=== PATIENT | female | born 1995 | race Caucasian/White ===

== ENCOUNTER 2019-06-30 15:28 | Outpatient (CLI) | payer OTHER ==
--- NOTE | 2019-06-30 17:14 | ULT ---
RIGHT BREAST DIAGNOSTIC ULTRASOUND: Indication: 24-year-old female with 5 weeks of greenish to brownish discharge from the right breast. Technique: Grayscale color doppler images were obtained of the right breast in the retroareolar regio n. FINDINGS: No suspicious sonographic abnormalities seen within the right breast retroareolar region. There is no evidence of ductal ectasia. A well circumscribed hypoechoic mass is incidentally noted in the right breast at the 7 o'clock posit ion 3 cm from the nipple measuring 7 mm x 3.6 mm x 6.9 mm. IMPRESSION: 1. No suspicious sonographic abnormality to explains the patient's unilateral greenish to brownish di scharge. There is no evidence of ductal ectasia. No retroareolar mass is demonstrated. Patient was re ferred back to her ordering clinician. Negative imaging should never deter biopsy findings on clinica l examination. If there is need for further imaging, evaluation with MRI of the breast with and witho ut contrast is recommended. 2. Incidental 6.9 x 6.9 x 3.6 mm well circumscribed oval mass in the 7 o'clock position of the right breast, most suspicious for a fibroadenoma. As a conservative measure, would recommend a follow up ri [facility] breast ultrasound in 6 months to document stability of this finding. 3. Findings were discussed with the patient [facility] POS: OFF
== END 2019-06-30 15:29 | disposition home or self-care (01) ==
LOC: BICULT 15:28
PROVIDERS: ATTEND Obstetrics & Gynecology
DX: N64.52 Nipple discharge (principal); N63.13 Unspecified lump in the right breast, lower outer quadrant
CPT/HCPCS: 87070

== ENCOUNTER 2021-09-02 11:31 | Emergency (ER) | payer OTHER, SELFPAY ==
[2021-09-02] MEDS ORDERED: Dexamethasone 4 mg/ml Vial ONE (13:00)
[2021-09-02 13:21] LABS: #Eosinphils 0.1 thou/uL (0.0-0.7); #Lymphocytes 2.3 thou/uL (1.20-3.40); #Monocytes 0.7 thou/uL (0.11-0.59); #Neutrophils 6.6 thou/uL (1.40-6.50); %Basophils 0.5 % (0.0-1.0); %Eosinophils 0.9 % (0.0-10.0); %Lymphocytes 23.7 % (21.0-51.0); %Monocytes 7.3 % (0.0-10.0); %Neutrophils 67.7 % (42.0-75.0); Hemoglobin 14.3 g/dL (12.0-16.0); Mean Corpuscular HGB CONC 34.3 g/dL (32.0-36.0); Mean Corpuscular Hemoglobin 32.7 pg (27.0-31.0); Mean Corpuscular Volume 95.3 fL (78.0-98.0); Mean Platelet Volume 7.3 fL (7.4-10.4); Platelet Count 259 thou/uL (130-400); RBC Distribution Width 10.8 % (11.5-14.5); Red Blood Cell (RBC) Count 4.38 mill/uL (4.20-5.40); White Blood Cell (WBC) Count 9.8 thou/uL (4.8-10.8)
[2021-09-02 13:25] LABS: BHCG - Serum Negative (NEGATIVE); Pregs Control Background? CLEAR/WHITE (CLR/WHITE); Pregs Control Bar Appear? YES (CONTROL BAR)
[2021-09-02 13:40] LABS: ALT (SGPT) 12 U/L (8-55); AST (SGOT) 17 U/L (5-34); Albumin 4.2 g/dL (3.5-5.0); Alkaline Phosphatase 59 U/L (40-110); Anion Gap 11 mmol/L (10-20); BUN (Urea Nitrogen) 9 mg/dL (7.0-18.7); Bilirubin, Total 0.3 mg/dL (0.2-1.2); Calc. Creatinine Clearance 0 mL/min (70-130); Calcium 9.6 mg/dL (7.8-10.44); Carbon Dioxide 25 mmol/L (22-29); Chloride 104 mmol/L (98-107); Globulin 3.3 g/dL (2.4-3.5); Glucose 91 mg/dL (70-105); Potassium 3.9 mmol/L (3.5-5.1); Protein, Total 7.5 g/dL (6.0-8.3); Sodium 136 mmol/L (136-145)
[2021-09-02] MEDS ORDERED: Ondansetron PF 4 MG/2 ML Vial ONE (14:40)
[2021-09-03 15:32] LABS: SARS-CoV-2 PCR by NAA Not Detected (NotDetected)
== END 2021-09-02 14:56 | disposition home or self-care (01) ==
LOC: ERS 11:31
DX: J20.9 Acute bronchitis, unspecified (principal); Z20.822 Contact with and (suspected) exposure to COVID-19
CPT/HCPCS: 36415; 71045; 80053; 84484; 84703; 85025; 85379; 87804; 93005; 96374; 96375; J1100; J2405; U0003; U0005